=== PATIENT | male | born 1950 | race Caucasian/White ===

== ENCOUNTER 2020-12-08 12:05 | Observation (INO) ==
[2020-12-08] MEDS ORDERED: 0.9 % Sodium Chloride 1,000 ML IVC ONE ×2 (12:39→16:37)
[2020-12-08] MEDS ORDERED: Isovue-370 500 ML BOTTLE IVP ONE ×2 (12:40→18:03)
[2020-12-08 13:19] LABS: White Blood Count 8.2 K/mcL (4.3-11.1)
[2020-12-08 13:20] LABS: Basophils # 0.2 K/mcL (0.0-0.2); Basophils % 2.3 %; Eosinophils # 0.1 K/mcL (0.0-0.6); Eosinophils % 0.9 %; Hematocrit 36.7 % (37.5-50.1); Hemoglobin 11.8 g/dL (12.9-16.9); Immature Granulocytes % 0.2 % (0-4); Lymphocytes % 23.9 %; Mean Corpuscular HGB Conc 32.2 g/dL (31.6-35.5); Mean Corpuscular Hemoglobin 30.7 pg (28.0-33.3); Mean Corpuscular Volume 95.6 fL (83.0-100.0); Mean Platelet Volume 12.2 fL (9.4-12.4); Monocytes # 0.7 K/mcL (0.0-1.3); Monocytes % 8.2 %; Neutrophils # 5.3 K/mcL (1.6-8.9); Platelet Count 158 K/mcL (140-400); Red Blood Count 3.84 M/mcL (4.19-5.50); Red Cell Distribution Width 16.1 % (11.5-14.5); Segmented Neutrophils % 64.5 %
[2020-12-08 13:26] LABS: INR 1.1; Prothrombin Time 12.3 Seconds (9.4-12.1)
[2020-12-08 13:32] LABS: Activated Partial Thrombo Time 20.9 Seconds (26.0-36.0)
[2020-12-08 13:38] LABS: Alanine Aminotransferase 7 Units/L (7-52); Albumin 3.8 g/dL (3.5-5.7); Albumin/Globulin Ratio 1.2 (1.1-2.2); Alkaline Phosphatase 105 Units/L (34-104); Aspartate Amino Transferase 12 Units/L (13-39); BUN/Creatinine Ratio 18 (6-26); Bilirubin,Direct 0.2 mg/dL (0.0-0.2); Bilirubin,Indirect 0.5 mg/dL (0.0-1.0); Bilirubin,Total 0.7 mg/dL (0.3-1.0); Blood Urea Nitrogen 24 mg/dL (8-23); Calcium 10.5 mg/dL (8.6-10.3); Carbon Dioxide 19 mEq/L (23-29); Chloride 101 mEq/L (98-107); Globulin 3.3 g/dL (2.4-3.5); Glucose 126 mg/dL (70-105); Lipase 17 Units/L (11-82); Osmolality,Calculated 280 (280-300); Potassium 4.2 mEq/L (3.5-5.1); Sodium 132 mEq/L (136-145); Total Protein 7.1 g/dL (6.4-8.9); Troponin I < 0.03 ng/mL (< 0.04); eGFR For African Americans > 60 (> 60); eGFR For Non-African Americans 53 (> 60)
[2020-12-08 14:55] LABS: Bilirubin,Urine Negative (Negative); Blood,Urine Negative (Negative); Clarity,Urine Clear (Clear); Color,Urine Yellow (Yellow); Glucose,Urine (UA) Normal (Normal); Hyaline Casts,Urine Many per lpf (None Seen); Ketones,Urine 10 mg/dL (Negative); Leukocyte Esterase,Urine Negative (Negative); Mucus,Urine Few per lpf (None-Few); Nitrite,Urine Negative (Negative); Protein,Urine 70 mg/dL (Neg-Trace); Specific Gravity,Urine > 1.030 (1.010-1.025); Squamous Epithelial Cell,Urine Few per hpf (None-Few)
[2020-12-08] MEDS ORDERED: Morphine Sulfate 2 MG/ML SYRINGE IVP ONE (16:37)
[2020-12-08] MEDS ORDERED: Naloxone 0.4 MG/ML INJ IVP PRN (18:02)
[2020-12-08] MEDS ORDERED: Ondansetron 4 MG/2 ML VIAL IVP PRN (18:02)
[2020-12-08] MEDS ORDERED: Perflutren Lipid Microsphere 1.3 ML in 0.9 % Sodium Chloride 8.7 ML IVP PRN (18:03)
[2020-12-08] MEDS ORDERED: Dextrose Gel 15 GM/37.5 ML TUBE PO PRN ×2 (18:05)
[2020-12-08] MEDS ORDERED: *HR* Dextrose 50 % in Water (Vial) 50 ML VIAL IVP PRN (18:05)
[2020-12-08] MEDS ORDERED: D5% in Water 1,000 ML IVC PRN (18:05)
[2020-12-08 18:47] LABS: Thyroid Stimulating Hormone 1.141 mcIU/mL (0.340-5.600)
[2020-12-08] MEDS: carvediloL 6.25 MG TABLET PO SCH (20:21)
[2020-12-09] MEDS: *HR* Heparin 5,000 UNIT/ML VIAL SQ SCH ×2 (04:56→17:01)
[2020-12-09 05:42] LABS: Basophils # 0.2 K/mcL (0.0-0.2); Basophils % 2.5 %; Eosinophils # 0.3 K/mcL (0.0-0.6); Eosinophils % 4.1 %; Hematocrit 32.1 % (37.5-50.1); Hemoglobin 10.1 g/dL (12.9-16.9); Immature Granulocytes % 0.3 % (0-4); Immature Platelets 9.1 % (1.1-6.1); Lymphocytes # 2.5 K/mcL (0.6-4.6); Lymphocytes % 39.1 %; Mean Corpuscular HGB Conc 31.5 g/dL (31.6-35.5); Mean Corpuscular Hemoglobin 30.4 pg (28.0-33.3); Mean Corpuscular Volume 96.7 fL (83.0-100.0); Mean Platelet Volume 13.5 fL (9.4-12.4); Monocytes # 0.6 K/mcL (0.0-1.3); Monocytes % 8.9 %; Neutrophils # 2.9 K/mcL (1.6-8.9); Platelet Count 145 K/mcL (140-400); Red Blood Count 3.32 M/mcL (4.19-5.50); Red Cell Distribution Width 16.2 % (11.5-14.5); Segmented Neutrophils % 45.1 %; White Blood Count 6.3 K/mcL (4.3-11.1)
[2020-12-09 05:46] LABS: BUN/Creatinine Ratio 18 (6-26); Blood Urea Nitrogen 20 mg/dL (8-23); Calcium 9.5 mg/dL (8.6-10.3); Carbon Dioxide 24 mEq/L (23-29); Chloride 104 mEq/L (98-107); Glucose 87 mg/dL (70-105); Magnesium 1.8 mg/dL (1.6-2.6); Osmolality,Calculated 282 (280-300); Phosphorous 3.2 mg/dL (2.7-4.5); Potassium 4.4 mEq/L (3.5-5.1); Sodium 135 mEq/L (136-145); eGFR For African Americans > 60 (> 60); eGFR For Non-African Americans > 60 (> 60)
[2020-12-09] MEDS: Insulin LISPRO 300 UNITS/3 ML VIAL SUBQ SCH ×3 (07:46→16:30)
[2020-12-09] MEDS: Sennosides/Docusate Sodium TABLET PO SCH ×2 (08:03→21:31)
[2020-12-09] MEDS: carvediloL 6.25 MG TABLET PO SCH ×2 (08:03→17:01)
[2020-12-09] MEDS ORDERED: hydrOXYzine pamoate 25 MG CAPSULE PO PRN (13:43)
[2020-12-09] MEDS: Artificial Tears SOLN 15 ML BOTTLE BOTH EYES SCH ×2 (15:57→21:35)
[2020-12-09] MEDS ORDERED: traZODone 50 MG TABLET PO SCH (21:00)
[2020-12-09] MEDS: Budesonide/Formoterol 160/4.5 1 PUFF INH IH SCH (22:01)
[2020-12-10] MEDS: *HR* Heparin 5,000 UNIT/ML VIAL SQ SCH (05:27)
[2020-12-10] MEDS: Insulin LISPRO 300 UNITS/3 ML VIAL SUBQ SCH ×2 (06:34→11:59)
[2020-12-10 07:00] LABS: Hematocrit 29.9 % (37.5-50.1); Hemoglobin 9.6 g/dL (12.9-16.9); Mean Corpuscular HGB Conc 32.1 g/dL (31.6-35.5); Mean Corpuscular Hemoglobin 30.9 pg (28.0-33.3); Mean Corpuscular Volume 96.1 fL (83.0-100.0); Mean Platelet Volume 12.3 fL (9.4-12.4); Platelet Count 120 K/mcL (140-400); Red Blood Count 3.11 M/mcL (4.19-5.50); White Blood Count 4.9 K/mcL (4.3-11.1)
[2020-12-10 07:25] LABS: BUN/Creatinine Ratio 19 (6-26); Blood Urea Nitrogen 19 mg/dL (8-23); Calcium 9.2 mg/dL (8.6-10.3); Carbon Dioxide 25 mEq/L (23-29); Chloride 105 mEq/L (98-107); Glucose 86 mg/dL (70-105); Osmolality,Calculated 284 (280-300); Potassium 4.2 mEq/L (3.5-5.1); Sodium 136 mEq/L (136-145); eGFR For African Americans > 60 (> 60); eGFR For Non-African Americans > 60 (> 60)
[2020-12-10] MEDS ORDERED: Lidocaine -MPF 2% 2 ML VIAL ONE (08:19)
[2020-12-10] MEDS ORDERED: Loratadine 10 MG TABLET PO SCH (09:00)
[2020-12-10] MEDS ORDERED: allopurinoL 300 MG TABLET PO SCH (09:00)
[2020-12-10] MEDS ORDERED: lisinopriL 5 MG TABLET PO SCH (09:00)
[2020-12-10] MEDS ORDERED: Cholecalciferol (D-3) 1,000 UNIT (25MCG) TABLET PO SCH (09:00)
[2020-12-10] MEDS ORDERED: Tiotropium 10 INH DOSE IH SCH (09:00)
[2020-12-10] MEDS ORDERED: Cyanocobalamin (B-12) 1,000 MCG TABLET PO SCH (09:00)
[2020-12-10] MEDS: carvediloL 6.25 MG TABLET PO SCH (09:58)
[2020-12-10] MEDS: Sennosides/Docusate Sodium TABLET PO SCH (10:30)
[2020-12-10 11:27] VITALS: BP 114/58
[2020-12-10] MEDS: Budesonide/Formoterol 160/4.5 1 PUFF INH IH SCH (11:31)
[2020-12-10] MEDS: Artificial Tears SOLN 15 ML BOTTLE BOTH EYES SCH ×2 (11:58→14:55)
[2020-12-10] MEDS ORDERED: *HR* Phenylephrine 10 MG/ML VIAL IVC ONE (15:29)
== END 2020-12-10 15:30 | disposition home or self-care (01) ==
LOC: EMEROOARM 12:05 → 2NNU 12:05 → SUATTDRO 17:41 → 2NNU 17:44
PROVIDERS: ADMIT Internal Medicine; ATTEND Internal Medicine